=== PATIENT | female | born 1950 | race Caucasian/White ===

== ENCOUNTER 2021-06-04 08:05 | Day surgery (SDC) | payer MEDICARE, BC ==
[2021-05-28 12:06] LABS: BASOPHILS % (AUTO) 0.7 % (0-1); EOSINOPHILS # (AUTO) 0.1 X10'3 (0-0.9); EOSINOPHILS % (AUTO) 1.2 % (0-6); LYMPHOCYTES # (AUTO) 1.4 X10'3 (1.1-4.8); LYMPHOCYTES % (AUTO) 23.3 % (21-51); MEAN CORPUSCULAR HEMOGLOBIN 29.7 PG (27.0-31.0); MEAN CORPUSCULAR VOLUME 90.2 FL (78-98); MEAN PLATELET VOLUME 8.8 FL (7.4-10.4); MONOCYTES # (AUTO) 0.6 X10'3 (0-0.9); MONOCYTES % (AUTO) 9.5 % (2-12); NEUTROPHILS # (AUTO) 4.1 X10'3 (1.8-7.7); NEUTROPHILS % (AUTO) 65.3 % (42-75); PRE OP HEMATOCRIT 38.2 % (35.0-45.0); PRE OP HEMOGLOBIN 12.6 g/dL (12.0-16.0); PRE OP PLATELET COUNT 215 X10'3 (140-440); RED BLOOD COUNT 4.23 X10'6 (4.20-5.60); RED CELL DISTRIBUTION WIDTH 14.6 % (11.5-14.5)
[2021-05-28 12:06] LABS: CLARITY,URINE CLEAR (Clear); COLOR,URINE YELLOW (Yellow); GLUCOSE, URINE NEGATIVE (Neg); KETONES,URINE NEGATIVE (Neg); LEUKOCYTE ESTERASE ,URINE NEGATIVE (Neg); NITRITES, URINE NEGATIVE (Neg); OCCULT BLOOD,URINE NEGATIVE (Neg); PH,URINE 5.5 (4.8-8.0); PROTEIN,URINE NEGATIVE (Neg); UROBILINOGEN,URINE 0.2 E.U/dL (0.2-1.0)
[2021-05-28 12:08] LABS: UA COLLECTION TYPE CLN CATCH MIDSTREAM
[2021-05-28 12:28] LABS: ALBUMIN 3.9 G/DL (3.4-5.0); ALBUMIN/GLOBULIN RATIO 1.3 (1.1-1.5); ALKALINE PHOSPHATASE 85 IU/L (46-116); BLOOD UREA NITROGEN 20 MG/DL (7-18); BUN/CREATININE RATIO 23.5 (6.6-38.0); CALCIUM 9.4 MG/DL (8.5-10.1); CHLORIDE 107 MMOL/L (99-107); CREATININE 0.85 MG/DL (0.40-0.90); PRE OP ALT 33 U/L (30-65); PRE OP ANION GAP 5 (8-16); PRE OP AST 21 U/L (10-37); PRE OP BILIRUB, TOTAL 0.4 MG/DL (0.0-1.0); PRE OP GLUCOSE 105 MG/DL (70-104); PRE OP SODIUM 141 MMOL/L (135-145); TOTAL CARBON DIOXIDE 28.6 MMOL/L (24-32); eGFR 66 ML/MIN
[2021-06-04] VITALS (9 sets, daily range): BP systolic 125–143; BP diastolic 53–82
[~2021-06-04] VITALS: Ht 165.1 cm; Wt 88.8 kg
[~2021-06-04 08:05] MED LIST: ATOR40TA PO; BUPR-230 PO; HYDR-3686 PO; LORA-269 PO; OMEP20CA16 PO; [UNRECOGNIZED DRUG - CODE] PO; ceFOXitin 2GM-NS 100mL ADDvant 100 ML IV ONE; famotidine 20mg tablet PO ONE; meperidine/PF 25mg/ml syringe IV PRN; morphine 2 MG/ML inj. syringe IV PRN; morphine 4 MG/ML inj SYRINge IV PRN; ondansetron/PF 4mg/2ml inj IV PRN; proCHLORperazine 10 MG/2 ml inj IV PRN; ringers solution, lacted 1,000 ML IV SCH
[2021-06-04] MEDS ORDERED: epiNEPHrine 1 mg/ml inj ONE (09:23)
[2021-06-04] MEDS ORDERED: BUPIVAcaine 0.5% inj/PF 60 ML ONE (09:24)
[2021-06-04] MEDS ORDERED: midazolam 1 mg/ML 2ml injection ONE (09:56)
[2021-06-04] MEDS ORDERED: fentaNYL /PF 50mcg/ml 5ml ampule ONE (09:56)
[2021-06-04] MEDS ORDERED: rocuronium 10mg/ml inj IV ONE (10:00)
[2021-06-04] MEDS ORDERED: propofol inj 20 ML IV ONE (10:00)
[2021-06-04] MEDS ORDERED: LIDOcaine 2% (20mg/ml) 5ml vial ONE (10:00)
[2021-06-04] MEDS ORDERED: ondansetron/PF 4mg/2ml inj ONE (10:33)
[2021-06-04] MEDS ORDERED: dexamethasone sod phosphate 4mg/ml inj. ONE (10:33)
[2021-06-04] MEDS ORDERED: neostigmine methylsulfate 1 MG/ML 10ml vial ONE (11:35)
[2021-06-04] MEDS ORDERED: glycopyrrolate 0.2mg/ml inj ONE (11:35)
--- NOTE | 2021-06-04 11:45 | NUR ---
Received from OR via , accompanied by Anesthesiologist and report given by Anesthesiolgist. PATIENT WAKING UP, DENIES PAIN, V/S WNL, NEUROVASCULAR CHECKS INTACT, PERIPAD WITH NO ACTIVE BLEEDING. 20G PIV TO LEFT UPPER ARM, SCD ON.
--- NOTE | 2021-06-04 12:55 | NUR ---
PATIENT a&ox4, denies pain, V/S WNL, NEUROVASCULAR CHECKS INTACT, PERIPAD WITH NO ACTIVE BLEEDING. 20G PIV TO LEFT UPPER ARM d/c, SCD Off.i have reviewed d/c orders with patient and she has verbalized understanding. patient d/c home with all belongings and gave transport. patient was able to void post as well.
== END 2021-06-04 12:55 | disposition home or self-care (01) ==
LOC: PAS 08:05
PROVIDERS: ATTEND Obstetrics & Gynecology Obstetrics
DX: N83.8 Other noninflammatory disorders of ovary, fallopian tube and broad ligament (principal); N83.292 Other ovarian cyst, left side; F41.9 Anxiety disorder, unspecified; F32.A Depression, unspecified; K21.9 Gastro-esophageal reflux disease without esophagitis; D64.9 Anemia, unspecified; M19.90 Unspecified osteoarthritis, unspecified site; M81.0 Age-related osteoporosis without current pathological fracture; E66.9 Obesity, unspecified; Z68.32 Body mass index [BMI] 32.0-32.9, adult; Z20.822 Contact with and (suspected) exposure to COVID-19; Z87.442 Personal history of urinary calculi; Z87.891 Personal history of nicotine dependence; Z98.890 Other specified postprocedural states; Z90.710 Acquired absence of both cervix and uterus; Z88.5 Allergy status to narcotic agent; Z79.899 Other long term (current) drug therapy; Z82.49 Family history of ischemic heart disease and other diseases of the circulatory system; Z81.8 Family history of other mental and behavioral disorders
CPT/HCPCS: 36415; 58661; 71046; 80053; 81003; 82948; 85025; 86885; 86900; 86901; J0171; J0694; J1100; J2175; J2250; J2405; J2704; J2710; J3010; J3490; J7030; J7120; S0020; U0003; U0005; Z7506; Z7508; Z7512; A4618; A7000

== ENCOUNTER 2023-10-27 05:30 | Day surgery (SDC) | payer MEDICARE, BC ==
[2023-10-21 09:44] LABS: BASOPHILS % (AUTO) 0.6 % (0-1); EOSINOPHILS # (AUTO) 0.1 X10'3 (0-0.9); EOSINOPHILS % (AUTO) 1.7 % (0-6); LYMPHOCYTES # (AUTO) 1.5 X10'3 (1.1-4.8); LYMPHOCYTES % (AUTO) 21.7 % (21-51); MEAN CORPUSCULAR HEMOGLOBIN 28.1 PG (27.0-31.0); MEAN CORPUSCULAR HGB CONC 32.1 g/dL (33.0-36.5); MEAN CORPUSCULAR VOLUME 87.5 FL (78-98); MEAN PLATELET VOLUME 8.4 FL (7.4-10.4); MONOCYTES # (AUTO) 0.6 X10'3 (0-0.9); MONOCYTES % (AUTO) 9.4 % (2-12); NEUTROPHILS # (AUTO) 4.6 X10'3 (1.8-7.7); NEUTROPHILS % (AUTO) 66.6 % (42-75); PRE OP HEMATOCRIT 36.8 % (35.0-45.0); PRE OP HEMOGLOBIN 11.8 g/dL (12.0-16.0); PRE OP PLATELET COUNT 230 X10'3 (140-440); PRE OP WHITE BLOOD COUNT 6.9 10'3 (4.8-10.8); RED CELL DISTRIBUTION WIDTH 15.9 % (11.5-14.5)
[2023-10-21 10:09] LABS: ALBUMIN 3.8 G/DL (3.4-5.0); ALBUMIN/GLOBULIN RATIO 1.1 (1.1-1.5); ALKALINE PHOSPHATASE 78 IU/L (46-116); BLOOD UREA NITROGEN 17 MG/DL (7-18); BUN/CREATININE RATIO 23.3 (10.0-20.0); CALCIUM 10.1 MG/DL (8.5-10.1); CHLORIDE 104 MMOL/L (99-107); CREATININE 0.73 MG/DL (0.40-0.90); PRE OP ALT 35 U/L (30-65); PRE OP ANION GAP 7 (8-16); PRE OP AST 17 U/L (10-37); PRE OP BILIRUB, TOTAL 0.5 MG/DL (0.0-1.0); PRE OP GLUCOSE 106 MG/DL (70-104); PRE OP POTASSIUM 4.2 MMOL/L (3.4-5.1); PRE OP SODIUM 140 MMOL/L (135-145); TOTAL PROTEIN 7.2 G/DL (6.4-8.2); eGFR 78 ML/MIN
[~2023-10-27] VITALS: Ht 162.6 cm; Wt 83.3 kg
[2023-10-27] VITALS (45 sets, daily range): BP systolic 125–166; BP diastolic 59–98; PULSE 65–100; RESP 11–29; TEMP 97.2–98.2; O2SAT 84–98
[~2023-10-27 05:30] MED LIST changes: +ATOR10TA87 PO; -ATOR40TA PO; -[UNRECOGNIZED DRUG - CODE] PO; -ceFOXitin 2GM-NS 100mL ADDvant 100 ML IV ONE; -famotidine 20mg tablet PO ONE; -meperidine/PF 25mg/ml syringe IV PRN; -morphine 2 MG/ML inj. syringe IV PRN; -morphine 4 MG/ML inj SYRINge IV PRN; -ondansetron/PF 4mg/2ml inj IV PRN; -proCHLORperazine 10 MG/2 ml inj IV PRN; -ringers solution, lacted 1,000 ML IV SCH
[2023-10-27] MEDS: famotidine 20mg tablet PO ONE (06:06)
[2023-10-27] MEDS: ringers solution, lacted 1,000 ML IV SCH ×2 (06:06→10:35)
[2023-10-27] MEDS: cefazolin 2gm/D5W 100mL 100 ML IV ONE (06:07)
[2023-10-27] MEDS ORDERED: sevoflurane 250ml liquid IH ONE (07:20)
[2023-10-27] MEDS ORDERED: midazolam 1 mg/ML 2ml injection ONE (07:29)
[2023-10-27] MEDS ORDERED: fentaNYL /PF 50mcg/ml 5ml ampule ONE (07:30)
[2023-10-27] MEDS ORDERED: LIDOcaine 2% (20mg/ml) 5ml vial ONE (07:34)
[2023-10-27] MEDS ORDERED: propofol inj 20 ML IV ONE ×2 (07:34→07:44)
[2023-10-27] MEDS ORDERED: rocuronium 10mg/ml inj IV ONE ×2 (07:44→09:54)
[2023-10-27] MEDS ORDERED: dexamethasone sod phosphate 4mg/ml inj. ONE (07:47)
[2023-10-27] MEDS ORDERED: ondansetron/PF 4mg/2ml inj ONE (07:52)
[2023-10-27] MEDS: BUPIVAcaine 2.5mg/ml inj 50ml vial (contains preservative) ONE (08:20)
[2023-10-27] MEDS: LIDOcaine 1% (10mg/ml)w/preservative inj. 20ml MDV ONE (08:21)
[2023-10-27] MEDS ORDERED: meperidine/PF 25mg/ml syringe IV PRN ×2 (10:05)
[2023-10-27] MEDS ORDERED: ringers solution, lacted 1,000 ML IV SCH (10:05)
[2023-10-27] MEDS ORDERED: morphine 2 MG/ML inj. syringe IV PRN (10:05)
[2023-10-27] MEDS ORDERED: proCHLORperazine 10 MG/2 ml inj IV PRN (10:05)
[2023-10-27] MEDS ORDERED: labetalol 20mg/4ml (5mg/ml) syringe IV PRN (10:05)
[2023-10-27] MEDS ORDERED: enalaprilat dihydrate 2.5mg/2ml vial IV PRN (10:05)
[2023-10-27] MEDS: sugammadex 200mg/2ml injection IV ONE (10:06)
[2023-10-27] MEDS: normal saline 1000ml 1,000 ML IV SCH (10:15)
[2023-10-27] MEDS ORDERED: naloxone 0.4 mg/ml inj IV PRN (10:15)
[2023-10-27] MEDS: HYDROmorph/NS 0.2 mg/ml PCA 100 ML IV SCH (10:15)
[2023-10-27] MEDS: meperidine/PF 25mg/ml syringe IV PRN (10:30)
[2023-10-27] MEDS: morphine 4 MG/ML inj SYRINge IV PRN (10:37)
[2023-10-27] MEDS: ondansetron/PF 4mg/2ml inj IV PRN ×2 (12:56→22:59)
[2023-10-27] MEDS: buPROPion SR 150mg tablet PO SCH (20:00)
[2023-10-27] MEDS: heparin, porcine 5000 units/ml vial SQ SCH (20:06)
[2023-10-27] MEDS: LORazepam 1 MG tablet PO PRN (22:22)
[2023-10-27] MEDS: hydrOXYzine 25 MG tablet PO PRN (22:22)
[2023-10-28 06:00] VITALS: BP 109/55; PULSE 101; RESP 16; TEMP 99.5; O2SAT 94
[2023-10-28 08:30] VITALS: RESP 16; O2SAT 94
[2023-10-28 10:39] VITALS: BP 125/71; PULSE 97; RESP 20; TEMP 98.9; O2SAT 92
[2023-10-28] MEDS ORDERED: ONDA-243 PO (12:45)
[2023-10-28] MEDS ORDERED: PER5325T PO (12:46)
[2023-10-28] MEDS: PCA WASTE DOCUMENTATION 1 MG ML MC SCH (13:13)
[2023-10-28] MEDS: oxyCODONE/APAP 5-325mg tablet PO ONE (13:18)
[2023-10-28 18:00] VITALS: BP 125/84; PULSE 94; RESP 20; TEMP 98.1; O2SAT 93
[2023-10-28 20:00] VITALS: RESP 20; O2SAT 93
[2023-10-28] MEDS: oxyCODONE/APAP 5-325mg tablet PO PRN (20:35)
[2023-10-28] MEDS: LORazepam 0.5 MG tablet PO PRN (20:36)
[2023-10-28] MEDS: ondansetron 4mg rapidly disintigrating tab PO PRN (20:36)
[2023-10-28 22:00] VITALS: BP 145/76; PULSE 101; RESP 20; TEMP 98.5; O2SAT 93
[2023-10-29 06:00] VITALS: BP 131/65; PULSE 93; RESP 20; TEMP 98.5; O2SAT 90
[2023-10-29 08:13] VITALS: RESP 18; O2SAT 92
[2023-10-29 08:35] LABS: ALBUMIN 3.3 G/DL (3.4-5.0); ANION GAP 6 (8-16); BLOOD UREA NITROGEN 10 MG/DL (7-18); BUN/CREATININE RATIO 13.9 (10.0-20.0); CALCIUM 9.7 MG/DL (8.5-10.1); CHLORIDE 107 MMOL/L (99-107); CREATININE 0.72 MG/DL (0.40-0.90); GLUCOSE 87 MG/DL (70-104); POTASSIUM 4.1 MMOL/L (3.5-5.1); SODIUM 143 MMOL/L (135-145); TOTAL CARBON DIOXIDE 29.6 MMOL/L (24-32); eCRCL 60 ML/MIN; eGFR 79 ML/MIN
[2023-10-29 10:00] VITALS: BP 133/76; PULSE 99; RESP 16; TEMP 98.3; O2SAT 94
[2023-10-29 10:40] VITALS: RESP 16
[2023-10-29] MEDS: oxyCODONE/APAP 5-325mg tablet PO PRN (10:40)
== END 2023-10-29 10:40 | disposition home or self-care (01) ==
LOC: PAS 05:30 → SUR 3N 10:00 → PACU 10:17 → UNDOADMOB 10:17 → SUR 3N 17:33 → PACU 17:33 → PAS 10-29 10:40 → UNDODISOB 10-29 10:40
PROVIDERS: ATTEND Surgery
DX: K44.9 Diaphragmatic hernia without obstruction or gangrene (principal); K21.9 Gastro-esophageal reflux disease without esophagitis; F41.8 Other specified anxiety disorders; E78.5 Hyperlipidemia, unspecified; Z98.890 Other specified postprocedural states; Z90.710 Acquired absence of both cervix and uterus; Z79.899 Other long term (current) drug therapy; Z88.6 Allergy status to analgesic agent; Z87.442 Personal history of urinary calculi; Z87.891 Personal history of nicotine dependence
CPT/HCPCS: 36415; 43282; 71045; 80048; 80053; 82948; 85025; 87081; A4615; A4618; C1781; J0131; J0690; J1100; J1644; J2001; J2175; J2250; J2270; J2405; J2704; J2710; J3010; J3490; J7030; J7120; Q0177; Z7506; Z7508; Z7512; Z7610; G0378